=== PATIENT | male | born 1995 | race Asian ===

== ENCOUNTER 2017-04-17 00:52 | Emergency (ER) | payer BC ==
[~2017-04-17] VITALS: Ht 172.7 cm; Wt 80.3 kg
[2017-04-17 01:26] LABS: PLATELET COUNT 196 K/uL (142-355)
[2017-04-17 02:12] LABS: SODIUM 142 mmol/L (136-145)
[2017-04-17 02:30] VITALS: BP 128/76; TEMP 98.3
== END 2017-04-17 02:31 | disposition home or self-care (01) ==
LOC: ED 00:52
DX: R51 Headache (principal); F19.10 Other psychoactive substance abuse, uncomplicated
CPT/HCPCS: 36415; 80053; 80307; 81000; 85027; 96360; 96361; 96374; 96375; 99284; G0479; J1100; J1200; J1885; J2405

== ENCOUNTER 2018-11-08 17:54 | Emergency (ER) | payer OTHER ==
[~2018-11-08] VITALS: Ht 167.6 cm; Wt 81.6 kg
[2018-11-08 18:00] VITALS: BP 157/99; TEMP 98.6
== END 2018-11-08 18:28 | disposition home or self-care (01) ==
LOC: ED 17:54
DX: H10.9 Unspecified conjunctivitis (principal)
CPT/HCPCS: 99282